=== PATIENT | male | born 1995 | race Caucasian/White ===

== ENCOUNTER 2020-08-29 04:20 | Emergency (ER) | payer MEDICAID ==
[~2020-08-29] VITALS: Ht 188 cm; Wt 77.3 kg
[2020-08-29 04:52] VITALS: BP 135/87
[2020-08-29] MEDS ORDERED: naproxen 500mg tablet PO ONE (05:15)
[2020-08-29] MEDS ORDERED: NAPR-56 PO (05:30)
== END 2020-08-29 06:29 | disposition home or self-care (01) ==
LOC: ER 04:22
DX: S52.122A Displaced fracture of head of left radius, initial encounter for closed fracture (principal); M25.521 Pain in right elbow; W18.39XA Other fall on same level, initial encounter; Y93.89 Activity, other specified; Y92.89 Other specified places as the place of occurrence of the external cause; Y99.8 Other external cause status
CPT/HCPCS: 29105; 73080; 99283